=== PATIENT | female | born 1960 | race Caucasian/White ===

== ENCOUNTER → 2018-03-06 | Outpatient (CLI) | payer OTHER | LOC: RAD 11:19 | DX: Z12.31 Encounter for screening mammogram for malignant neoplasm of breast (principal) ==

== ENCOUNTER → 2018-06-11 | Outpatient (CLI) | payer OTHER ==
[~2018-06-11] VITALS: Ht 177.8 cm; Wt 87.1 kg
[~2018-06-11] MED LIST: ARMOUR THYROID60 M1 PO
--- NOTE | 2018-06-12 17:07 | PATH ---
[facility] [place] [address] PATHOLOGY RPT PROCEDURE Name: MALIK WELLS Room #: REG [facility].#: [id number] Admission: 06/11/18 Date of : 62 Discharge: Report #: [id number] Path Case #: [id number] [facility] Accession Number: [id number] . 01 Material submitted: . PART A: BX OF ANTRUM PART B: BX OF DISTAL ESOPHAGUS PART C: BX OF MID ESOPHAGUS . 01 Clinical history: . Dysphagia A: Rule out H. pylori B/C: Rule out EOE . 02 Diagnosis: A. Gastric mucosa, antrum rule out H. pylori, endoscopic biopsy: - Moderate reactive gastropathy. - Negative for intestinal metaplasia or atrophy. - Negative for Helicobacter pylori (properly controlled immunohistochemical stain performed). . B. Squamous mucosa, distal esophagus rule out EOE, endoscopic biopsy: - Moderate active esophagitis with focally increased intraepithelial eosinophils up to 8/HPF, please see comment. - Focal area compatible with ulceration present. - Negative for intestinal metaplasia or dysplasia. . C. Squamous mucosa, mid esophagus to rule out EOE, endoscopic biopsy: - Mild active esophagitis without associated increase in intraepithelial eosinophils. - Negative for intestinal metaplasia or dysplasia. . (IUV:organic search lead; 06/12/2018) MBR/06/12/2018 . 02 Comment: Examination of the esophageal biopsy tissue shows squamous mucosa with a marked number of intraepithelial eosinophils. Although eosinophils are commonly encountered in inflammation due to reflux esophagitis, the eosinophils in the present specimen are numerous, exceeding 8/hpf. Apart from reflux esophagitis, potential etiologies for the histologic pattern include allergic and collagen vascular diseases, fungal or parasitic infections, and eosinophilic esophagitis (idiopathic). Please correlate with clinical and endoscopic findings. (IUV:organic search lead; 06/12/2018) . 02 Electronically signed: . [address] [address] PATHOLOGY RPT PROCEDURE Name: MALIK WELLS Room #: REG [facility] Shabazz#: [id number] Admission: 06/11/18 Date of : 62 Discharge: Report #: [id number] Path Case #: [id number] Babs King MD, Pathologist NPI- [id number] . 01 Gross description: . A. The specimen is received in formalin, labeled "Malik Wells, BX of antrum" and consists of a fragment of lombardi tissue measuring 0.6 x 0.2 x 0.2 cm which is entirely submitted in A1. . B. The specimen is received in formalin, labeled "Malik Wells, BX of distal esophagus" and consists of 2 translucent fragments of nelson-lombardi tissue measuring 0.4 x 0.3 x 0.1 cm each. They are entirely submitted in B1. . C. The specimen is received in formalin, labeled "Malik Wells, BX of midesophagus" and consists of 4 fragments of translucent nelson-lombardi tissue measuring between 0.1 x 0.1 cm and 0.4 x 0.3 x 0.1 cm. They are entirely submitted in C1. (SDY; 06/11/2018) SYU/SYU . 02 Microscopic: . . . 02 Pathologist provided ICD-10: K31.9, K20.9, K22.10 . 02 CPT . 328707, 472964, 921176, J40952 Specimen Comment: A courtesy copy of this report has been sent to Specimen Comment: [phone], . Specimen Comment: Report sent to / DR ZAYAS Performed at: [address], [place], [place] [id number] MD Tam Ortega MD Phone: [phone] Performed at: [address] [id number] MD Babs King MD Phone: [phone]
== END | disposition home or self-care (01) ==
LOC: GI 08:16
DX: K31.9 Disease of stomach and duodenum, unspecified (principal); K22.2 Esophageal obstruction; K22.10 Ulcer of esophagus without bleeding; K44.9 Diaphragmatic hernia without obstruction or gangrene; E03.9 Hypothyroidism, unspecified; K21.9 Gastro-esophageal reflux disease without esophagitis; Z88.2 Allergy status to sulfonamides; Z88.6 Allergy status to analgesic agent; Z98.890 Other specified postprocedural states; Z79.899 Other long term (current) drug therapy
CPT/HCPCS: 62110; 62900

== ENCOUNTER → 2018-08-06 | Outpatient (CLI) | payer OTHER ==
[~2018-08-06] VITALS: Ht 177.8 cm; Wt 88.5 kg
[~2018-08-06] MED LIST changes: +PROTONIX40 M1 PO
--- NOTE | 2018-08-08 11:07 | PATH ---
[facility] [address] [place] [address] PATHOLOGY RPT PROCEDURE Name: MALIK WELLS Nae Room #: REG ALEAH Scott.#: [id number] ������������������ Admission: 08/06/18 ������������������ Date of : 62 Discharge: Report #: [id number] Path Case #: [id number] [facility] Accession Number: [id number] . 01 Material submitted: . BX ESOPHAGEAL STRICTURE . 01 Clinical history: . Preop DX: Hx esophagitis Postop DX: Esophageal stricture, hiatal hernia R/O Ramirez's . 02 Diagnosis: Gastroesophageal mucosa, esophageal stricture rule out Ramirez's, endoscopic biopsy: - Gastric fundic-type mucosa with moderate chronic inflammation. - Squamous mucosa with mild esophagitis. - Negative for intestinal metaplasia or dysplasia. (IUV:pit 08/07/2018) QTP/08/07/2018 . 02 Electronically signed: . Babs King MD, Pathologist NPI- [id number] . 01 Gross description: . Received in formalin labeled "Malik Wells, esophageal stricture R/O Barretts," is a segment of pink-lombardi soft tissue measuring 0.2 x 0.1 x 0.1 cm in greatest dimensions. No further tissue is identified within the specimen container. The container contents are filtered and submitted entirely in cassette A1. Due to minuscule size of the specimen, may not survive processing. ([facility]; 08/06/2018) XDC/XDC . 02 Pathologist provided ICD-10: K20.9 . 02 CPT . 189568 Specimen Comment: A courtesy copy of this report has been sent to Specimen Comment: [phone], . Specimen Comment: Report sent to / DR ZAYAS Specimen Comment: A duplicate report has been generated due to demographic updates. Performed at: [address] [address] PATHOLOGY RPT PROCEDURE Name: MALIK WELLS [facility] [id number] ������������������ Admission: 08/06/18 ������������������ Date of : 62 Discharge: Report #: [id number] Path Case #: [id number] [address] [id number] MD Tam Ortega MD Phone: [phone] Performed at: [address] [facility] [address] [id number] MD Babs King MD Phone: [phone]
== END | disposition home or self-care (01) ==
LOC: GI 08:23
DX: K20.9 Esophagitis, unspecified (principal); K22.2 Esophageal obstruction; K44.9 Diaphragmatic hernia without obstruction or gangrene; E03.9 Hypothyroidism, unspecified; K21.9 Gastro-esophageal reflux disease without esophagitis; Z98.890 Other specified postprocedural states; Z79.899 Other long term (current) drug therapy; Z88.2 Allergy status to sulfonamides; Z88.8 Allergy status to other drugs, medicaments and biological substances
CPT/HCPCS: 62110; 62900

== ENCOUNTER → 2019-02-28 | Outpatient (CLI) | payer OTHER | LOC: RAD 11:10 | DX: Z12.31 Encounter for screening mammogram for malignant neoplasm of breast (principal) ==

== ENCOUNTER → 2019-03-07 | Outpatient (CLI) | payer OTHER | LOC: ULTRA 09:46 | DX: E04.2 Nontoxic multinodular goiter (principal); Z88.2 Allergy status to sulfonamides; Z88.8 Allergy status to other drugs, medicaments and biological substances ==

== ENCOUNTER → 2019-04-15 | Outpatient (CLI) | payer OTHER ==
[~2019-04-15] VITALS: Ht 177.8 cm; Wt 87.5 kg
[~2019-04-15] MED LIST changes: +MULTI VITAMIN1 EACH PO; +PROGESTERONE200 MG PO
== END | disposition home or self-care (01) ==
LOC: GI 09:00
DX: R13.19 Other dysphagia (principal); K22.2 Esophageal obstruction; K44.9 Diaphragmatic hernia without obstruction or gangrene; K21.9 Gastro-esophageal reflux disease without esophagitis; E03.9 Hypothyroidism, unspecified; Z98.890 Other specified postprocedural states; Z79.899 Other long term (current) drug therapy; Z88.2 Allergy status to sulfonamides; Z88.8 Allergy status to other drugs, medicaments and biological substances
CPT/HCPCS: 62110; 62900

== ENCOUNTER → 2019-11-27 | Outpatient (CLI) | payer OTHER ==
[2019-11-27 09:08] LABS: ABSOLUTE NEUTROPHILS 4.5 thou/uL (1.4-8.2); BASOPHILS 0.6 % (0.0-2.0); EOSINOPHILS 2.5 % (0.0-3.0); HEMATOCRIT 45.1 % (37.0-47.0); HEMOGLOBIN 14.9 gm/dL (12.0-15.0); LYMPHOCYTES 25.1 % (24.0-44.0); MCH 29.4 pg (26.0-34.0); MCV 89.1 fL (80.0-100.0); MONOCYTES 6.8 % (1.0-8.0); PLATELET COUNT 285 thou/uL (150-400); RBC 5.06 mil/uL (4.20-5.00); RDW 13.4 % (10.5-14.5)
[2019-11-27 09:27] LABS: ALBUMIN 3.3 g/dL (3.4-5.0); ANION GAP 4 mmol/L (7-16); BUN 17 mg/dL (7-18); CALCIUM 8.6 mg/dL (8.5-10.1); CHLORIDE 103 mmol/L (98-107); CHOLESTEROL 167 mg/dL (<200); CO2 31 mmol/L (21-32); CREATININE 0.8 mg/dL (0.6-1.0); GLUCOSE 86 mg/dL (74-106); HDL CHOLESTEROL 45 mg/dL (>40); LDL CHOLESTEROL 100 mg/dL (<100); POTASSIUM 4.9 mmol/L (3.5-5.1); SGOT 15 U/L (15-37); SGPT 19 U/L (30-65); SODIUM 138 mmol/L (136-145); TC:HDL 3.7 Ratio (Not establshd); TOTAL BILIRUBIN 0.5 mg/dL (0.2-1.0); TOTAL PROTEIN 6.5 g/dL (6.4-8.2); TRIGLYCERIDE 112 mg/dL (<150); VLDL 22 mg/dL (<40)
== END ==
LOC: LABMALL 08:41
PROVIDERS: ATTEND Nurse Practitioner
DX: Z13.220 Encounter for screening for lipoid disorders (principal); E03.9 Hypothyroidism, unspecified; I10 Essential (primary) hypertension; R53.83 Other fatigue

== ENCOUNTER → 2020-04-09 | Outpatient (CLI) | payer OTHER ==
[2020-04-10 02:06] LABS: T4 (THYROXINE) 6.5 ug/dL (4.5-12.0); TESTOSTERONE* 97 ng/dL (3-41)
== END ==
LOC: LAB 15:59
PROVIDERS: ATTEND Family Medicine
DX: E03.9 Hypothyroidism, unspecified (principal); E34.9 Endocrine disorder, unspecified; E55.9 Vitamin D deficiency, unspecified; N95.1 Menopausal and female climacteric states